=== PATIENT | male | born 1980 | race Caucasian/White ===

== ENCOUNTER 2018-06-01 18:46 | Emergency (ER) | payer OTHER ==
[2018-06-01] MEDS: ONDANSETRON 4 MG INJ IV (20:07)
[2018-06-01] MEDS: SOD CHLORIDE 0.9% 1,000 ML IV (20:07)
[2018-06-01 20:28] LABS: ANION GAP 16 (8-16); BLOOD UREA NITROGEN 12 mg/dl (7-20); CALCIUM 9.5 mg/dl (8.4-10.2); CARBON DIOXIDE 27 mmol/L (21-31); CHLORIDE 102 mmol/L (97-110); CREATININE 0.68 mg/dl (0.61-1.24); GLUCOSE 95 mg/dl (70-220); POTASSIUM 4.1 mmol/L (3.5-5.1); SODIUM 141 mmol/L (135-144)
== END 2018-06-01 21:20 | disposition home or self-care (01) ==
LOC: E/R 18:46
DX: R11.2 Nausea with vomiting, unspecified (principal); F17.210 Nicotine dependence, cigarettes, uncomplicated
CPT/HCPCS: 80048; 96374; 99284-25